=== PATIENT | male | born 1950 | race Caucasian/White ===

== ENCOUNTER 2017-07-17 09:23 | Emergency (ER) | payer MEDICARE, BC ==
[~2017-07-17 09:23] MED LIST: DIOVAN HCT; GABA-1 PO; LISI-355 PO; METXL50 PO; MIRT-1 PO; MIRT-18 PO; MORIR15 PO; TRA50 PO; VALS40TA6 PO; ZOLP-350 PO
[2017-07-17] MEDS ORDERED: TRAM-420 PO (09:39)
[2017-07-17] MEDS ORDERED: TRAZ-156 PO (09:39)
[2017-07-17] MEDS ORDERED: HYDR-4225 PO (09:39)
[2017-07-17] MEDS ORDERED: LOSA50TA72 PO (09:39)
[2017-07-17] MEDS ORDERED: AMLO-99 PO (09:39)
--- NOTE | 2017-07-17 09:39 | ER Report ---
History and Physical Time Seen By MD: 09:39 Hx. of Stated Complaint: patient has been having palpitations off and on for the last month or so. he also reports some shortness of breath. patient denies chest pain. HPI/ROS This is a 67-year-old male who has a past medical history significant for hypertension which he takes 2 different medications. He presents to the emergency department stating he has been feeling palpitations and what he describes as a pounding heartbeat in his abdomen that has worsened for the past month. He denies chest pain or abdominal pain. He has no focal neurologic complaints or deficits. No lower extremity or upper extremity paresthesias or weakness. No claudications. He has never smoked. He said his sister is undergoing what sounds like an aorta femoral I past surgery in the next few months. He otherwise has no complaints. Remainder of the 14 system rev: Yes Allergies: Coded Allergies: Penicillins (Verified Allergy, Unknown, 07/12/16) Home Meds Reported Medications Trazodone Hcl (TRAZODONE HCL) 50 Mg Tablet, 50 MG PO QHS 07/17/17 Tramadol Hcl (TRAMADOL HCL) 50 Mg Tablet, 50-100 MG PO Q4-6H, TAB 07/17/17 Losartan Potassium (LOSARTAN POTASSIUM) 50 Mg Tablet, 50 MG PO QDAY 07/17/17 Losartan Potassium (LOSARTAN POTASSIUM) 50 Mg Tablet, 50 MG PO QDAY 07/17/17 Hydroxyzine Hcl (HYDROXYZINE HCL) 25 Mg Tablet, 25 MG PO QDAY 07/17/17 Amlodipine Besylate (AMLODIPINE BESYLATE) 10 Mg Tablet, 1 TAB PO QDAY, TAB 07/17/17 Discontinued Reported Medications Morphine Sulfate (Morphine Ir) 15 Mg Tab, 30 MG PO, 0 Refills 03/07/11 Gabapentin (Neurontin) 600 Mg Tablet, 600 MG PO 6XDAILY, 0 Refills 03/07/11 Lisinopril/Hydrochlorothiazide (Lisinopril-Hctz 02/09.5) 1 Each Tablet, 1 EACH PO DAILY, 0 Refills 03/07/11 Tramadol Hcl (Ultram) 50 Mg Tab, 50 MG PO Q4-6H Y, 0 Refills 03/07/11 Metoprolol Succinate (Toprol Xl) 50 Mg Tabcr, 50 MG PO QDAY, 0 Refills 03/07/11 Reviewed Nurses Notes: Yes Old Medical Records Reviewed: Yes Hx Smoking: No Hx Substance Use Disorder: No Hx Alcohol Use: No Family History of: HTN Constitutional Vital Sign - Last 24 Hours 07/17/17 07/17/17 07/17/17 07/17/17 09:27 09:28 09:30 09:38 Temp 98.4 Pulse 78 69 Resp 16 10 B/P (MAP) 162/97 162/97 (118) 153/85 (107) Pulse Ox 95 94 O2 Delivery Room Air 07/17/17 07/17/17 07/17/17 07/17/17 09:53 10:00 10:23 10:30 Pulse 68 64 Resp 11 16 B/P (MAP) 136/81 (99) 135/108 (117) Pulse Ox 94 94 07/17/17 07/17/17 07/17/17 07/17/17 10:34 10:39 10:54 11:00 Pulse 59 67 56 Resp 18 10 15 B/P (MAP) 137/84 (101) Pulse Ox 95 95 95 07/17/17 07/17/17 07/17/17 07/17/17 11:09 11:24 11:30 11:39 Pulse 56 61 Resp 9 13 18 B/P (MAP) 141/79 (99) Pulse Ox 96 90 93 07/17/17 07/17/17 07/17/17 07/17/17 11:44 11:59 12:00 12:14 Pulse 56 57 52 Resp 13 18 21 B/P (MAP) 138/87 (104) Pulse Ox 93 94 93 07/17/17 07/17/17 07/17/17 07/17/17 12:29 12:30 12:44 12:59 Pulse 62 56 60 Resp 16 18 18 B/P (MAP) 138/84 (102) Pulse Ox 96 95 95 07/17/17 13:00 B/P (MAP) 148/86 (106) Physical Exam General Appearance: The patient is alert, has no immediate need for airway protection and no signs of toxicity. Eyes: Pupils equal and round no pallor or injection. ENT, Mouth: Mucous membranes are moist. Respiratory: There are no retractions, lungs are clear to auscultation. Cardiovascular: Regular rate and rhythm. Pulses equal Gastrointestinal: Abdomen is soft and non tender, no palpable masses, bowel sounds normal. Neurological: motor/sensation grossly normal Skin: Warm and dry, no rashes. Musculoskeletal: Neck is supple non tender. Extremities are nontender, nonswollen and have full range of motion. DIFFERENTIAL DIAGNOSIS: After history and physical exam differential diagnosis was considered for including but not limited to myocardial ischemia, pericarditis pulmonary embolus, chest wall pain, pleural inflammation and pulmonary infectious causes. Medical Decision Making Data Points Result Diagram: 07/17/17 0930 07/17/17 0930 Laboratory Hematology Test 07/17/17 09:30 Red Blood Count 4.98 M/uL (4.00-5.60) Mean Corpuscular Volume 88.2 fL (80.0-96.0) Mean Corpuscular Hemoglobin 30.2 pg (26.0-33.0) Mean Corpuscular Hemoglobin Concent 34.3 g/dL (32.0-36.0) Red Cell Distribution Width 14.1 % (11.5-14.5) Mean Platelet Volume 8.0 fL (7.2-11.1) Neutrophils (%) (Auto) 73.5 % (39.4-72.5) Lymphocytes (%) (Auto) 16.4 % (17.6-49.6) Monocytes (%) (Auto) 8.6 % (4.1-12.4) Eosinophils (%) (Auto) 1.2 % (0.4-6.7) Basophils (%) (Auto) 0.3 % (0.3-1.4) Nucleated RBC Relative Count (auto) 0.0 /100WBC Neutrophils # (Auto) 4.9 K/uL (2.0-7.4) Lymphocytes # (Auto) 1.1 K/uL (1.3-3.6) Monocytes # (Auto) 0.6 K/uL (0.3-1.0) Eosinophils # (Auto) 0.1 K/uL (0.0-0.5) Basophils # (Auto) 0.0 K/uL (0.0-0.1) Nucleated RBC Absolute Count (auto) 0.00 K/uL Sodium Level 138 mmol/L (137-145) Potassium Level 4.1 mmol/L (3.5-5.0) Chloride Level 106 mmol/L (98-107) Carbon Dioxide Level 20 mmol/L (22-30) Blood Urea Nitrogen 19 mg/dl (9-21) Creatinine 1.20 mg/dl (0.66-1.25) Glomerular Filtration Rate Calc > 60.0 Random Glucose 96 mg/dl (75-110) Calcium Level 9.2 mg/dl (8.4-10.2) Total Bilirubin 0.5 mg/dl (0.2-1.3) Aspartate Amino Transf (AST/SGOT) 24 U/L (0-35) Alanine Aminotransferase (ALT/SGPT) 35 U/L (0-56) Alkaline Phosphatase 79 U/L (0-126) Troponin I < 0.012 ng/ml Total Protein 7.1 gm/dl (6.3-8.2) Albumin 4.2 g/dl (3.5-5.0) Thyroid Stimulating Hormone (TSH) 3.50 uIU/ml (0.46-4.68) Chemistry Test 07/17/17 09:30 White Blood Count 6.7 k/uL (4.5-11.0) Red Blood Count 4.98 M/uL (4.00-5.60) Hemoglobin 15.1 g/dL (14.0-18.0) Hematocrit 43.9 % (42.0-52.0) Mean Corpuscular Volume 88.2 fL (80.0-96.0) Mean Corpuscular Hemoglobin 30.2 pg (26.0-33.0) Mean Corpuscular Hemoglobin Concent 34.3 g/dL (32.0-36.0) Red Cell Distribution Width 14.1 % (11.5-14.5) Platelet Count 228 K/uL (150-450) Mean Platelet Volume 8.0 fL (7.2-11.1) Neutrophils (%) (Auto) 73.5 % (39.4-72.5) Lymphocytes (%) (Auto) 16.4 % (17.6-49.6) Monocytes (%) (Auto) 8.6 % (4.1-12.4) Eosinophils (%) (Auto) 1.2 % (0.4-6.7) Basophils (%) (Auto) 0.3 % (0.3-1.4) Nucleated RBC Relative Count (auto) 0.0 /100WBC Neutrophils # (Auto) 4.9 K/uL (2.0-7.4) Lymphocytes # (Auto) 1.1 K/uL (1.3-3.6) Monocytes # (Auto) 0.6 K/uL (0.3-1.0) Eosinophils # (Auto) 0.1 K/uL (0.0-0.5) Basophils # (Auto) 0.0 K/uL (0.0-0.1) Nucleated RBC Absolute Count (auto) 0.00 K/uL Glomerular Filtration Rate Calc > 60.0 Calcium Level 9.2 mg/dl (8.4-10.2) Total Bilirubin 0.5 mg/dl (0.2-1.3) Aspartate Amino Transf (AST/SGOT) 24 U/L (0-35) Alanine Aminotransferase (ALT/SGPT) 35 U/L (0-56) Alkaline Phosphatase 79 U/L (0-126) Troponin I < 0.012 ng/ml Total Protein 7.1 gm/dl (6.3-8.2) Albumin 4.2 g/dl (3.5-5.0) Thyroid Stimulating Hormone (TSH) 3.50 uIU/ml (0.46-4.68) EKG/Imaging EKG Interpretation 12 lead EKG: Rhythm: normal sinus rhythm [place]: normal QRS: normal ST segments: normal Monitor Interpretation: Normal Sinus Rhythm ED Course/Re-evaluation ED Course 67-year-old male with a history of hypertension presents the emergency department with palpitations and also a feeling as if he has a bounding heart beat in his abdomen worsening for the past month. Denies chest pain or shortness of breath. No fever or chills, and no focal neurologic deficits. His EKG was normal without any pathology for worrisome palpitations. Has a vague family history of a sister with aortic disease, so obtained a CTA of the chest abdomen and pelvis to evaluate for any dissection or AAA. There is no aortic disease however the patient will follow up with Ramirez Gillespie about the multiple chronic findings on the scan. Electrolytes are within normal limits. TSH was also sent. There is no emergent finding for his symptoms, and he can follow-up with Ramirez Gillespie. Decision to Disposition Date: Jul 17, 2017 Decision to Disposition Time: 13:21 Depart Departure Latest Vital Signs Vital Signs Date Time Temp Pulse Resp B/P (MAP) Pulse Ox O2 Delivery O2 Flow Rate FiO2 07/17/17 13:00 148/86 (106) 07/17/17 12:59 60 18 95 07/17/17 09:27 98.4 Room Air Impression: Primary Impression: Heart palpitations Condition: Improved Disposition: HOME OR SELF-CARE Referrals: RAMIREZ GILLESPIE (PCP) Patient Instructions: Palpitations (ED) JOB DUMAS MD Jul 17, 2017 09:39
[2017-07-17 10:06] LABS: PLATELET COUNT, AUTOMATED 228 K/uL (150-450)
--- NOTE | 2017-07-17 10:28 | RADIOLOGY IMAGING REPORT ---
[place] [facility] [place] Yann [place] : 1950 MR: [id number] V: [id number] EXAM DATE: ORDERING PHYSICIAN: JOB DUMAS TECHNOLOGIST: Location: [facility] [place] Patient: Yann Becker : 1950 Visit/Account:[id number] Date of Sevice: 07/17/2017 2 VIEWS CHEST INDICATION: Rapid heart beat. Palpitations. COMPARISON: 08/03/2010 FINDINGS: The lungs are clear and appear mildly hyperexpanded. Chronic appearing linear scarring is seen withi n the lung bases posteriorly on the lateral view. No effusion or pneumothorax is seen. Heart size and mediastinal contours are normal. IMPRESSION: 1. No radiographic evidence of active disease. 2. Stable hyperexpansion with chronic appearing pleural parenchymal scarring in the lung bases. Report Dictated By: Palmer Rodriguez at 07/17/2017 10:23 AM Report E-Signed By: Palmer Rodriguez at 07/17/2017 10:24 AM WSN:[id number]
[2017-07-17] MEDS ORDERED: IOPAMIDOL 76% 150 ML INFUS BTL 150 ML ONE (11:12)
[2017-07-17] MEDS ORDERED: NS 0.9% 150 ML BAG 150 ML ONE (11:13)
--- NOTE | 2017-07-17 12:32 | RADIOLOGY IMAGING REPORT ---
FACILITY: [facility] PATIENT NAME: Yann Becker : 1950 MR: [id number] V: [id number] EXAM DATE: ORDERING PHYSICIAN: JOB DUMAS TECHNOLOGIST: Location: [facility] Patient: Yann Becker : 1950 Visit/Account:[id number] Date of Sevice: 07/17/2017 CT angiogram chest abdomen and pelvis without and with IV contrast. INDICATION: Family history of abdominal aortic aneurysm. Evaluate for aneurysm or dissection. COMPARISON: Chest CT 09/13/2012. Technique: Axial CT images are obtained through the chest abdomen and pelvis prior to and after admin istration of 125 mL Isovue-370 IV contrast. Reformatted coronal and sagittal images were reviewed. Co kiara MIP images were also obtained One of the following dose optimization techniques was utilized in the performance of this exam: Autom ated exposure control; adjustment of the mA and/or kV according to the patient's size; or use of an i terative reconstruction technique. Specific details can be referenced in the facility's radiology C T exam operational policy. FINDINGS: CT Chest: The aorta shows no aneurysm or dissection. The heart is normal size without pericardial effusion. The pulmonary arteries are grossly normal wit hout indication of filling defect. The mediastinum and hilar regions show no enlarged lymph nodes or abnormal density. The lungs show no focal consolidation, pleural effusion or pneumothorax. The right lower lobe and pos terior aspect does show 6 mm nodule on image #106. The left lower lobe does show micronodule in the l ateral aspect on image #88. Both these nodules are stable dating back to 2012. No other nodules. No f ocal interstitial opacity. Airways are clear. Bony structures show no acute fracture or discrete lesions. Mild degenerative changes spine. Chest wa ll shows no enlarged axillary lymph nodes or masses. CT Abdomen and Pelvis: The aorta shows no aneurysm or dissection. No periaortic inflammation or fluid. The mesenteric vessel s are patent without focal abnormality. Iliac and femoral arteries show no aneurysm or dissection or focal abnormality. Single bilateral renal arteries without focal abnormality. The liver shows 4 hyperenhancing nodules: 5 mm and the left lobe on image #100, 8 mm in the right lo be on image #106, 4 mm in the inferior right lobe and image #125 and 8 mm in the inferior right lobe on image #35. The liver shows no other discrete focal abnormality. The gallbladder, biliary system, pancreas, spleen, adrenal glands and left kidney within normal limit s with the right kidney does show subcentimeter hypodensity which is too small characterize and likel y tiny cyst. The right kidney is otherwise unremarkable. The visualized gastrointestinal tract, including the appendix, within normal limits. The stomach is d ecompressed and grossly normal. No free air, free fluid, fluid collections or areas of inflammation. The prostate is enlarged and heterogeneous with multiple calcifications. This does cause impression t o the urinary bladder. The remaining pelvic structures visualized within normal limits. The bony structures show no acute fractures or aggressive bony lesions. There are some cystic changes to the medial aspect the right acetabulum which has a nonaggressive appearance. This may represent m ild fibrous dysplasia. IMPRESSION: 1. The thoracic and abdominal aorta shows no aneurysm or dissection. 2. No acute abnormality to the chest, abdomen or pelvis. 3. The liver shows 4 hyperenhancing lesions, less than centimeter. These are too small characterize a nd could represent small hemangiomas. Suggest follow-up MRI of the liver, without and with contrast f or further evaluation. Alternatively a follow-up CT scan of the liver, without and with contrast in 6 months for reevaluation. 4. Other chronic findings as above. Report Dictated By: Baltazar Mac at 07/17/2017 12:04 PM Report E-Signed By: Baltazar Mac at 07/17/2017 12:27 PM WSN:[id number]
[2017-07-17 13:00] VITALS: BP 148/86
--- NOTE | 2017-07-17 14:23 | EKG ---
FACILITY: [facility] PATIENT NAME: BRENDA HUERTAS : [id number] MR: [id number] V: [id number] EXAM DATE: ORDERING PHYSICIAN: JOB DUMAS TECHNOLOGIST: RODRIGUE Chen Reason : PALPIATONS Blood Pressure : / mmHG Vent. Rate : 070 BPM Atrial Rate : 070 BPM P-R Int : 158 ms QRS Dur : 092 ms QT Int : 384 ms P-R-T Axes : 068 029 054 degrees QTc Int : 414 ms Normal sinus rhythm Normal ECG When compared with ECG of 21-APR-2017 08:54, Previous ECG has undetermined rhythm, needs review Criteria for Septal infarct are no longer present Confirmed by TENNILLE ROWELL ([id number]) on 07/17/2017 8:07:55 PM Referred By: PITER Confirmed By:TENNILLE ROWELL
== END 2017-07-17 13:21 | disposition home or self-care (01) ==
LOC: ER 09:23
DX: R00.2 Palpitations (principal); R91.8 Other nonspecific abnormal finding of lung field; K76.9 Liver disease, unspecified
CPT/HCPCS: 71046; 71275; 74174; 84443; 84484; 85025; 93005; 99284; Q9967; 82040; 82247; 82310; 82374; 82435; 82565; 82947; 84075; 84132; 84155; 84295; 84450; 84460; 84520

== ENCOUNTER → 2017-09-07 | Outpatient (CLI) | payer MEDICARE, BC ==
[~2017-09-07] MED LIST changes: +AMLO-99 PO; +GADOBENATE 529MG/1ML 15ML VIAL IVP ONE; +HYDR-4225 PO; +LOSA50TA72 PO; +NS 0.9% 20 ML SDV 40 ML ONE; +TRAM-420 PO; +TRAZ-156 PO
--- NOTE | 2017-09-07 16:21 | RADIOLOGY IMAGING REPORT ---
[place] [facility] [place]IENT NAME: Yann Becker : 1950 MR: [id number] V: [id number] EXAM DATE: ORDERING PHYSICIAN: RAMIREZ SMITH TECHNOLOGIST: Location: [facility] Patient: Yann Becker : 1950 Visit/Account:[id number] Date of Sevice: 09/07/2017 ABDOMEN W W/O CONTRAST HISTORY: Abnormal imaging of liver on recent CT ADDITIONAL HISTORY: None. TECHNIQUE: TECHNIQUE: Multiplanar multisequence magnetic resonance imaging of the abdomen with and without intravenous contrast. CONTRAST: 15 mL of MultiHance COMPARISON: CTA chest abdomen and pelvis July 17, 2017 FINDINGS: Visualized lung bases: Grossly unremarkable. Liver: One compared to the prior CT again noted are the four enhancing nodules, one in the left lobe measuring 5 mm best seen on the arterial phase 30 seconds subtraction images image 17. One in the po sterior right lobe measuring 8 mm best seen on the 60 seconds postcontrast images #23. One 4 mm nodu le in the inferior right lobe best seen on the 60 seconds subtraction series image 39. One identifie d in the inferior most aspect right lobe measuring 8 mm in diameter also best seen on the 32nd postco ntrast subtraction axial series image #46. There is an additional enhancing nodule in the caudate lo be measuring approximately 7 mm in diameter best seen on the 32nd postcontrast series image #20 all o f these nodules appear to follow blood likely representing tiny hemangiomas. There are several tiny hepatic cysts also noted Gallbladder: Negative. Bile ducts: Nondistended and unremarkable. Spleen: Negative. Adrenal glands: Negative. Pancreas: Negative. Kidneys: Small bilateral renal cysts Vessels/spaces/nodes: No bulky adenopathy or ascities. Visualized GI: Grossly unremarkable. Bones/soft tissues: Unremarkable. IMPRESSION: There are five enhancing nodules in the liver ranging in size from 4 mm to 8 mm. These all appear to display enhancement patterns following blood pool. These likely represent very small hemangiomas. Given the very small size the degree of enhancement is somewhat technically limited. Depending upon the degree of clinical concern (such as concern for possible metastases with a known primary) a six-m [facility] follow-up CT or MR may be helpful Report Dictated By: Hiral Rasmussen MD at 09/07/2017 3:00 PM Report E-Signed By: Hiral Rasmussen MD at 09/07/2017 4:18 PM STEPANN:[email or web address]
== END ==
LOC: MRI 08-29 01:04
PROVIDERS: ATTEND Nurse Practitioner Family
DX: K76.89 Other specified diseases of liver (principal)
CPT/HCPCS: 74183; A9577; J7050

== ENCOUNTER → 2017-09-07 | Outpatient (CLI) | payer MEDICARE, BC ==
[~2017-09-07] MED LIST changes: -GADOBENATE 529MG/1ML 15ML VIAL IVP ONE; -NS 0.9% 20 ML SDV 40 ML ONE
== END ==
LOC: LAB 08-29 09:58
PROVIDERS: ATTEND Nurse Practitioner Family
DX: I10 Essential (primary) hypertension (principal); K76.89 Other specified diseases of liver
CPT/HCPCS: 36415; 82565

== ENCOUNTER 2018-02-03 14:06 | Emergency (ER) | payer MEDICARE, BC ==
[~2018-02-03 14:06] MED LIST changes: +AMLO-113 PO; -AMLO-99 PO; -LOSA50TA72 PO; +LOSA50TA74 PO; -TRAZ-156 PO; +TRAZ50TA34 PO
--- NOTE | 2018-02-03 14:16 | ER Report ---
History and Physical Time Seen By MD: 14:16 Hx. of Stated Complaint: PATIENT CUT HIS RIGHT INDEX FINGER WITH KNIFE 15 MINUTES [employer] HPI/ROS CHIEF COMPLAINT: Laceration HISTORY OF PRESENT ILLNESS: This is a 67-year-old male who presents to the emergency department for a laceration to his right index finger. The patient lacerated his right index finger at the base of the PIP joint with his knife, approximately 15 minutes prior to arrival. CMS intact, bleeding controlled. No fevers, chills, no N/V. No other complaints at this time. REVIEW OF SYSTEMS: Respiratory: No cough, no dyspnea. Cardiovascular: No chest pain, no palpitations. Gastrointestinal: No vomiting, no abdominal pain. Musculoskeletal: As above. Integument: As well. Allergies: Coded Allergies: Penicillins (Verified Allergy, Unknown, 07/12/16) Home Meds Reported Medications Trazodone Hcl (TRAZODONE HCL) 50 Mg Tablet, 50 MG PO QHS 07/17/17 Tramadol Hcl (TRAMADOL HCL) 50 Mg Tablet, 50-100 MG PO Q4-6H, TAB 07/17/17 Losartan Potassium (LOSARTAN POTASSIUM) 50 Mg Tablet, 50 MG PO QDAY 07/17/17 Losartan Potassium (LOSARTAN POTASSIUM) 50 Mg Tablet, 50 MG PO QDAY 07/17/17 Hydroxyzine Hcl (HYDROXYZINE HCL) 25 Mg Tablet, 25 MG PO QDAY 07/17/17 Amlodipine Besylate (AMLODIPINE BESYLATE) 10 Mg Tablet, 1 TAB PO QDAY, TAB 07/17/17 Past Medical/Surgical History The patient has a past medical and surgical history of enlarged prostate, arthritis, back pain, depression, shoulder repair and complete rotator cuff. Reviewed Nurses Notes: Yes Hx Smoking: No Hx Substance Use Disorder: No Hx Alcohol Use: No Constitutional Vital Sign - Last 24 Hours 02/03/18 14:10 Temp 97.7 Pulse 60 Resp 20 B/P (MAP) 156/102 Pulse Ox 94 O2 Delivery Room Air Physical Exam General Appearance: The patient is alert, has no immediate need for airway protection and no current signs of toxicity. Eyes: Pupils equal and round no injection. Respiratory: Chest is non tender, lungs are clear to auscultation. Cardiac: regular rate and rhythm. Gastrointestinal: Abdomen is soft and non tender, no masses, bowel sounds normal. Musculoskeletal: Neck: Neck is supple and non tender. Extremities have full range of motion and are non tender. Skin: 2 cm laceration to the right index finger at the PIP joint, no deep structures involved, flexion and extension intact. Sensation intact distal to the injury. DIFFERENTIAL DIAGNOSIS: After history and physical exam differential diagnosis was considered for laceration. Medical Decision Making ED Course/Re-evaluation ED Course The patient was admitted. History of score pain. Differential diagnoses were considered. The simple laceration was repaired as noted below. Patient's tetanus was updated. Patient was instructed to monitor for signs infection. Follow-up with his primary care provider to have the sutures removed or return to the ED. Patient exposed understanding and was discharged home. Procedure: Laceration repair. Verbal consent was obtained from the patient. The wound 2cm laceration on the PIP joint on the right index finger was anesthetized in the usual fashion. The wound was scrubbed, draped and explored to its base with a gloved finger. There were no deep structures involved. No tendon injury was identified. The wound was repaired with 6, simple interrupted sutures using 5-0 Prolene. The wound repair was simple. The procedure was performed by myself. Decision to Disposition Date: Feb 03, 2018 Decision to Disposition Time: 14:51 Depart Departure Latest Vital Signs Vital Signs Date Time Temp Pulse Resp B/P (MAP) Pulse Ox O2 Delivery O2 Flow Rate FiO2 02/03/18 14:10 97.7 60 20 156/102 94 Room Air Impression: Primary Impression: Laceration of right index finger Condition: Improved Disposition: HOME OR SELF-CARE Referrals: RAMIREZ SMITH (PCP) Patient Instructions: Acute Wound Care (ED), Finger Laceration (ED) Additional Instructions: Keep wound dry for 48 hours. Follow up with your primary care provider in the next 7 days to have sutures removed. Monitor for signs of infection; redness, swelling, heat, discharge, increasing pain or red streaking. Take Tylenol or Ibuprofen as needed for pain. Return to the ER with any concerns. You may change dressing as needed. Problem Qualifiers Primary Impression: Laceration of right index finger Encounter type: initial encounter Damage to nail status: without damage Foreign body presence: without foreign body Qualified Codes: S61.210A - Laceration without foreign body of right index finger without damage to nail, initial encounter BRIANA KHALIL [employer]ER [employer]OR-[employer] Feb 03, 2018 14:16
[2018-02-03] MEDS ORDERED: DIPHTH/TETANUS/ACEL. PERTUSSIS IM ONLY ONE (14:20)
[2018-02-03 15:00] VITALS: BP 131/79
== END 2018-02-03 15:01 | disposition home or self-care (01) ==
LOC: ER 14:22
DX: S61.210A Laceration without foreign body of right index finger without damage to nail, initial encounter (principal)
CPT/HCPCS: 90471; 90715; 99283

== ENCOUNTER → 2018-03-21 | Outpatient (CLI) | payer MEDICARE, BC | LOC: LAB 07:31 | PROVIDERS: ATTEND Anesthesiology | DX: Z01.812 Encounter for preprocedural laboratory examination (principal); Z01.810 Encounter for preprocedural cardiovascular examination; M75.101 Unspecified rotator cuff tear or rupture of right shoulder, not specified as traumatic; S43.431A Superior glenoid labrum lesion of right shoulder, initial encounter ==

== ENCOUNTER → 2018-03-21 | Outpatient (CLI) | payer MEDICARE, BC ==
[~2018-03-21] MED LIST changes: +GADOBENATE 529MG/1ML 15ML VIAL IVP ONE; +NS(*) 0.9% 50 ML BAG 50 ML ONE
[2018-03-21 09:07] LABS: PLATELET COUNT, AUTOMATED 202 K/uL (150-450)
--- NOTE | 2018-03-21 09:08 | EKG ---
FACILITY: [facility] PATIENT NAME: BRENDA HUERTAS : [id number] MR: [id number] V: [id number] EXAM DATE: ORDERING PHYSICIAN: LEONEL WESLEY TECHNOLOGIST: FARZANEH Chen Reason : PREOP-SHOULDER Blood Pressure : / mmHG Vent. Rate : 049 BPM Atrial Rate : 049 BPM P-R Int : 186 ms QRS Dur : 096 ms QT Int : 446 ms P-R-T Axes : 074 070 059 degrees QTc Int : 402 ms Marked sinus bradycardia Abnormal ECG When compared with ECG of 17-JUL-2017 09:27, No significant change was found Confirmed by LEONEL MATSON ([id number]) on 03/21/2018 11:50:52 AM Referred By: Confirmed By:LEONEL MATSON
--- NOTE | 2018-03-21 09:38 | RADIOLOGY IMAGING REPORT ---
FACILITY: [facility] PATIENT NAME: Yann Becker : 1950 MR: [id number] V: [id number] EXAM DATE: ORDERING PHYSICIAN: SUDARSHAN CARTWRIGHT TECHNOLOGIST: [facility] Patient: Yann Becker : 1950 Visit/Account:[id number] Date of Sevice: 03/21/2018 ABDOMEN W W/O CONTRAST HISTORY: Hepatic hemangioma, nodular hyperplasia of the liver ADDITIONAL HISTORY: None. TECHNIQUE: TECHNIQUE: Multiplanar multisequence magnetic resonance imaging of the abdomen with and without intravenous contrast. CONTRAST: 15 mL of MultiHance COMPARISON: September 07, 2017, MR the abdomen with and without contrast FINDINGS: Visualized lung bases: Grossly unremarkable. Liver: The tiny 5 mm enhancing nodule in the lateral segment left lobe of the liver is again seen and appears well totally unchanged. This is best appreciated on the 90 sec postcontrast subtraction yesika ges image 22. The previously noted 8 mm enhancing nodule posterior aspect the right lobe is not well-seen on the cu rrent examination The previously noted 4 mm enhancing nodule anterior aspect of the right lobe is best seen on the 60 s ec subtraction image #37 and is adjacent to a small cyst and appears unchanged. The previously noted 8 mm enhancing nodule identified along the inferior most aspect of the right lob e is not as well identified although is faintly seen on the 30, 6090, seconds and five minutes subtra ction images on image 50 and measures approximately 7 mm diameter. The previously noted 7 mm enhancing nodule in the caudate lobe is not well-seen on the current examin ation. Gallbladder: Negative. Bile ducts: Nondistended and unremarkable. Spleen: Negative. Adrenal glands: Negative. Pancreas: Negative. Kidneys: Small bilateral renal cysts Vessels/spaces/nodes: No bulky adenopathy or ascities. Visualized GI: Grossly unremarkable. Bones/soft tissues: Unremarkable. IMPRESSION: The previously noted enhancing hepatic nodules are either stable or decreased in size when compared t o the prior study. As previously noted these likely represent tiny hemangiomas however given the bruce y small size characterization by their enhancement pattern is somewhat limited. The stability howeve r suggests a benign etiology. If there is clinical concern for metastatic disease such as a known pr imary malignancy a six-month follow-up MR may be helpful Report Dictated By: Hiral Rasmussen MD at 03/21/2018 8:55 AM Report E-Signed By: Hiral Rasmussen MD at 03/21/2018 9:34 AM STEPANN:GINNA
== END ==
LOC: MRI 00:48
PROVIDERS: ATTEND Nurse Practitioner Family
DX: N28.1 Cyst of kidney, acquired (principal); R94.31 Abnormal electrocardiogram [ECG] [EKG]
CPT/HCPCS: 36415; 74183; 85025; 93005; A9577; J7050; 82040; 82247; 82310; 82374; 82435; 82565; 82947; 84075; 84132; 84155; 84295; 84450; 84460; 84520

== ENCOUNTER → 2018-08-27 | Outpatient (CLI) | payer MEDICARE, BC ==
[~2018-08-27] MED LIST changes: -AMLO-113 PO; +AMLO-127 PO; -GADOBENATE 529MG/1ML 15ML VIAL IVP ONE; -LOSA50TA74 PO; +LOSA50TA80 PO; -NS(*) 0.9% 50 ML BAG 50 ML ONE
--- NOTE | 2018-08-27 12:45 | EKG ---
FACILITY: [facility] - [place] PATIENT NAME: BRENDA HUERTAS : [id number] MR: [id number] V: [id number] EXAM DATE: ORDERING PHYSICIAN: RAMIREZ SMITH TECHNOLOGIST: Test Reason : Blood Pressure : / mmHG Vent. Rate : 060 BPM Atrial Rate : 060 BPM P-R Int : 164 ms QRS Dur : 096 ms QT Int : 406 ms P-R-T Axes : 072 051 053 degrees QTc Int : 406 ms Normal sinus rhythm with sinus arrhythmia Normal ECG No previous ECGs available Confirmed by SAVANA RIZVI ([id number]) on 08/27/2018 4:40:40 PM Referred By: Confirmed By:SAVANA RIZVI
== END ==
LOC: RESP 12:34
PROVIDERS: ATTEND Nurse Practitioner Family
DX: R53.83 Other fatigue (principal); R06.00 Dyspnea, unspecified; I10 Essential (primary) hypertension
CPT/HCPCS: 93005